=== PATIENT | female | born 1960 | race African-American/Black ===

== ENCOUNTER 2020-11-24 07:09 | Emergency (ER) | payer SELFPAY | END 2020-11-24 09:08 | disposition home or self-care (01) | LOC: ERS 07:09 | DX: H00.014 Hordeolum externum left upper eyelid (principal) | CPT/HCPCS: 99283 ==

== ENCOUNTER 2022-03-31 07:33 | Inpatient (IN) | payer BC, SELFPAY ==
[2022-03-31] MEDS ORDERED: Ipratropium Bromide 2.5 ml Neb ONE (08:34)
[2022-03-31] MEDS ORDERED: Albuterol Sulfate 1.25 MG/3 ML NEB ONE (08:38)
[2022-03-31 08:40] LABS: #Eosinphils 0.2 thou/uL (0.0-0.7); #Lymphocytes 1.6 thou/uL (1.20-3.40); #Monocytes 0.9 thou/uL (0.11-0.59); #Neutrophils 10.4 thou/uL (1.40-6.50); %Basophils 0.2 % (0.0-1.0); %Eosinophils 1.4 % (0.0-10.0); %Lymphocytes 12.3 % (21.0-51.0); %Monocytes 6.7 % (0.0-10.0); %Neutrophils 79.5 % (42.0-75.0); Hemoglobin 13.1 g/dL (12.0-16.0); Mean Corpuscular Volume 87.9 fl (78.0-98.0); Mean Platelet Volume 8.8 fL (7.4-10.4); Platelet Count 217 10x3/uL (130-400); RBC Distribution Width 13.2 % (11.5-14.5); Red Blood Cell (RBC) Count 4.51 mill/uL (4.20-5.40); White Blood Cell (WBC) Count 13.1 10x3/uL (4.8-10.8)
[2022-03-31] MEDS ORDERED: methylPREDNISolone Sod Succ/PF 125 MG/2 ML VIAL ONE (08:41)
[2022-03-31] MEDS ORDERED: Albuterol Sulfate 2.5 mg/3 ml Neb ONE (09:19)
[2022-03-31 09:24] LABS: ALT (SGPT) 28 U/L (8-55); AST (SGOT) 34 U/L (5-34); Albumin 4.1 g/dL (3.5-5.0); Alkaline Phosphatase 53 U/L (40-110); Anion Gap 16 mmol/L (10-20); BUN (Urea Nitrogen) 9 mg/dL (9.8-20.1); Bilirubin, Total 0.9 mg/dL (0.2-1.2); Calc. Creatinine Clearance 0 mL/min (70-130); Calcium 9.2 mg/dL (7.8-10.44); Carbon Dioxide 19 mmol/L (22-29); Chloride 104 mmol/L (98-107); Estimated GFR 82; Globulin 4.5 g/dL (2.4-3.5); Glucose 112 mg/dL (70-105); Potassium 4.7 mmol/L (3.5-5.1); Protein, Total 8.6 g/dL (6.0-8.3); Sodium 134 mmol/L (136-145)
[2022-03-31] MEDS ORDERED: Acetaminophen 500 MG TAB ONE (09:24)
[2022-03-31] MEDS ORDERED: Magnesium 2 GM/50 ML BAG (IN WATER) ONE (09:26)
[2022-03-31] MEDS ORDERED: cefTRIAXone\\ROCEPHIN 1 GM VIAL ONE (09:55)
[2022-03-31] MEDS ORDERED: Azithromycin 500 MG VIAL ONE (09:55)
[2022-03-31 10:34] LABS: SARS-CoV-2 NAA Rapid Test Not Detected (NotDetected)
[2022-03-31 10:43] LABS: Bilirubin Negative (Negative); Blood, Urine Negative (Negative); Clarity Clear (Clear); Glucose, Urine (Dipstick) Normal (Negative); Ketone, Urine Negative (Negative); Leukocyte Negative Leu/uL (Negative); Nitrite Negative (Negative); Protein, Urine (Dipstick) Negative (Neg-Trace); Specific Gravity, Urine 1.016 (1.002-1.036); Urobilinogen Normal mg/dL (Less than 2)
[2022-03-31 11:24] LABS: Lactic Acid 2.3 mmol/L (0.5-2.2)
[2022-03-31] MEDS ORDERED: Labetalol HCl 100 MG/20 ML VIAL SLOW IVP PRN (14:10)
[2022-03-31] MEDS ORDERED: hydrALAZINE 20 MG/ML VIAL SLOW IVP PRN (14:10)
[2022-03-31] MEDS ORDERED: Ondansetron ODT 4 MG TAB SL PRN (14:10)
[2022-03-31] MEDS ORDERED: Ondansetron PF 4 MG/2 ML Vial IVP PRN (14:10)
[2022-03-31 14:24] VITALS: BMI 35.3
[2022-03-31] MEDS: Sodium Chloride 0.9% 1,000 ML IV SCH (15:16)
[2022-03-31] MEDS: Famotidine 20 MG TAB PO SCH (19:48)
[2022-03-31] MEDS: Acetaminophen 500 MG TAB PO PRN (19:48)
[2022-03-31] MEDS: Benzonatate 100 MG CAP PO PRN (19:49)
[2022-04-01] MEDS: Sodium Chloride 0.9% 1,000 ML IV SCH ×2 (01:25→10:19)
[2022-04-01] MEDS ORDERED: Ipratropium Bromide 2.5 ml Neb ONE (02:07)
[2022-04-01 07:58] LABS: ALT (SGPT) 19 U/L (8-55); AST (SGOT) 18 U/L (5-34); Albumin 3.5 g/dL (3.5-5.0); Alkaline Phosphatase 45 U/L (40-110); Anion Gap 10 mmol/L (10-20); BUN (Urea Nitrogen) 11 mg/dL (9.8-20.1); Bilirubin, Total 0.8 mg/dL (0.2-1.2); Calc. Creatinine Clearance 107 mL/min (70-130); Calcium 8.5 mg/dL (7.8-10.44); Carbon Dioxide 21 mmol/L (22-29); Chloride 110 mmol/L (98-107); Estimated GFR 99; Globulin 3.6 g/dL (2.4-3.5); Glucose 133 mg/dL (70-105); Potassium 4.1 mmol/L (3.5-5.1); Protein, Total 7.1 g/dL (6.0-8.3); Sodium 137 mmol/L (136-145)
[2022-04-01] MEDS: Famotidine 20 MG TAB PO SCH ×2 (08:10→20:52)
[2022-04-01] MEDS: Acetaminophen 500 MG TAB PO PRN (08:10)
[2022-04-01 08:15] LABS: #Lymphocytes 1.6 thou/uL (1.20-3.40); #Monocytes 0.7 thou/uL (0.11-0.59); #Neutrophils 13.6 thou/uL (1.40-6.50); %Eosinophils 0.1 % (0.0-10.0); %Lymphocytes 9.9 % (21.0-51.0); %Monocytes 4.5 % (0.0-10.0); %Neutrophils 85.5 % (42.0-75.0); Band 5 % (5-11); Hemoglobin 11.1 g/dL (12.0-16.0); Lymphocytes 14 % (21-51); MDiff Complete? YES; Mean Corpuscular HGB CONC 32.2 g/dL (32.0-36.0); Mean Corpuscular Hemoglobin 28.6 pg (27.0-31.0); Mean Corpuscular Volume 88.6 fl (78.0-98.0); Mean Platelet Volume 8.4 fL (7.4-10.4); Monocytes 4 % (0-10); Neutrophil 77 % (42-75); Platelet Count 183 10x3/uL (130-400); Polychromasia SLIGHT = 2-3 cells (100X) (0-2/hpf); RBC Distribution Width 13.4 % (11.5-14.5); Red Blood Cell (RBC) Count 3.89 mill/uL (4.20-5.40); White Blood Cell (WBC) Count 15.9 10x3/uL (4.8-10.8)
[2022-04-01] MEDS: methylPREDNISolone Sod Succ 40 MG VIAL IVP SCH ×2 (13:06→21:00)
[2022-04-01] MEDS: Benzonatate 100 MG CAP PO PRN (20:52)
[2022-04-02] MEDS: methylPREDNISolone Sod Succ 40 MG VIAL IVP SCH (05:44)
[2022-04-02] MEDS: Acetaminophen 500 MG TAB PO PRN (05:46)
[2022-04-02] MEDS: Benzonatate 100 MG CAP PO PRN (05:46)
[2022-04-02] MEDS: Famotidine 20 MG TAB PO SCH ×2 (08:16→21:57)
[2022-04-03] MEDS ORDERED: predniSONE 5 MG TAB PO SCH (08:00)
[2022-04-03] MEDS: Acetaminophen 500 MG TAB PO PRN (08:54)
[2022-04-03] MEDS: Famotidine 20 MG TAB PO SCH (08:54)
[2022-04-03] MEDS: Benzonatate 100 MG CAP PO PRN (08:54)
[2022-04-03 09:02] VITALS: BP 140/95; TEMP 97.9
== END 2022-04-03 11:46 | disposition home or self-care (01) | DRG 871 ==
LOC: ERS 07:33 → ERHOLD 10:53 → T4-A 14:03
PROVIDERS: ADMIT Family Medicine; ATTEND Internal Medicine
DX: A41.9 Sepsis, unspecified organism (principal); J18.9 Pneumonia, unspecified organism; J96.01 Acute respiratory failure with hypoxia; J45.21 Mild intermittent asthma with (acute) exacerbation; E66.9 Obesity, unspecified; Z20.822 Contact with and (suspected) exposure to COVID-19; Z68.35 Body mass index [BMI] 35.0-35.9, adult; Z98.890 Other specified postprocedural states
CPT/HCPCS: 36415; 71045; 80053; 81003; 83605; 83880; 84484; 85025; 87040; 87077; 87149; 87633; 93005; 94640; 94644; 96374; 96375; J0456; J0696; J1956; J2920; J2930; J3475; J7050; J7512; J7611; J7620

== ENCOUNTER 2022-04-18 17:32 | Inpatient (IN) | payer BC ==
[~2022-04-18 17:32] MED LIST: Iopamidol-370 76% 500 ML 1 ML ONE
[2022-04-18] MEDS ORDERED: Magnesium 2 GM/50 ML BAG (IN WATER) ONE (17:51)
[2022-04-18] MEDS ORDERED: methylPREDNISolone Sod Succ/PF 125 MG/2 ML VIAL ONE (17:52)
[2022-04-18] MEDS ORDERED: Albuterol 2.5 MG/0.5 ML NEB ONE ×2 (17:52→17:56)
[2022-04-18] MEDS ORDERED: Labetalol HCl 100 MG/20 ML VIAL ONE (17:52)
[2022-04-18] MEDS ORDERED: Ipratropium Bromide 2.5 ml Neb ONE (17:58)
[2022-04-18] MEDS ORDERED: Ondansetron PF 4 MG/2 ML Vial ONE (18:01)
[2022-04-18 18:09] LABS: Hemoglobin 13.1 g/dL (12.0-16.0); Mean Corpuscular HGB CONC 32.9 g/dL (32.0-36.0); Mean Corpuscular Hemoglobin 28.4 pg (27.0-31.0); Mean Corpuscular Volume 86.1 fl (78.0-98.0); Platelet Count 207 10x3/uL (130-400); RBC Distribution Width 13.2 % (11.5-14.5); Red Blood Cell (RBC) Count 4.61 mill/uL (4.20-5.40); White Blood Cell (WBC) Count 10.2 10x3/uL (4.8-10.8)
[2022-04-18 18:28] LABS: MDiff Complete? YES
[2022-04-18 18:29] LABS: Eosinophils 8 % (0-10); Lymphocytes 49 % (21-51); Monocytes 6 % (0-10); Neutrophil 37 % (42-75); Platelet Morphology Comment Appears Adequate; RBC Morphology Normal
[2022-04-18 18:32] LABS: ALT (SGPT) 28 U/L (8-55); AST (SGOT) 35 U/L (5-34); Albumin 3.9 g/dL (3.5-5.0); Alkaline Phosphatase 45 U/L (40-110); Anion Gap 15 mmol/L (10-20); BUN (Urea Nitrogen) 13 mg/dL (9.8-20.1); Bilirubin, Total 0.4 mg/dL (0.2-1.2); Calc. Creatinine Clearance 0 mL/min (70-130); Calcium 9.2 mg/dL (7.8-10.44); Carbon Dioxide 20 mmol/L (22-29); Chloride 108 mmol/L (98-107); Estimated GFR 87; Globulin 4.7 g/dL (2.4-3.5); Glucose 112 mg/dL (70-105); Potassium 4.5 mmol/L (3.5-5.1); Protein, Total 8.6 g/dL (6.0-8.3); Sodium 138 mmol/L (136-145)
[2022-04-18] MEDS ORDERED: Ipratropium/Albuterol 3 ML NEB ONE (19:38)
[2022-04-18] MEDS ORDERED: Sodium Chloride 0.9% 1,000 ML IV SCH (23:30)
[2022-04-18] MEDS ORDERED: Senokot S 8.6-50 MG TAB PO PRN (23:51)
[2022-04-18] MEDS ORDERED: Ondansetron ODT 4 MG TAB PO PRN (23:51)
[2022-04-18 23:55] VITALS: BMI 40.7
[2022-04-19] MEDS: Ipratropium/Albuterol 3 ML NEB NEB SCH ×4 (02:05→18:20)
[2022-04-19 03:29] LABS: #Lymphocytes 1.4 thou/uL (1.20-3.40); #Neutrophils 9.9 thou/uL (1.40-6.50); %Eosinophils 0.2 % (0.0-10.0); %Monocytes 0.2 % (0.0-10.0); %Neutrophils 87.5 % (42.0-75.0); Hemoglobin 12.7 g/dL (12.0-16.0); Mean Corpuscular HGB CONC 33.3 g/dL (32.0-36.0); Mean Corpuscular Hemoglobin 29.4 pg (27.0-31.0); Mean Corpuscular Volume 88.2 fl (78.0-98.0); Platelet Count 170 10x3/uL (130-400); RBC Distribution Width 13.1 % (11.5-14.5); Red Blood Cell (RBC) Count 4.34 mill/uL (4.20-5.40); White Blood Cell (WBC) Count 11.3 10x3/uL (4.8-10.8)
[2022-04-19 03:48] LABS: Anion Gap 15 mmol/L (10-20); BUN (Urea Nitrogen) 10 mg/dL (9.8-20.1); Calc. Creatinine Clearance 129 mL/min (70-130); Calcium 9.1 mg/dL (7.8-10.44); Carbon Dioxide 19 mmol/L (22-29); Chloride 107 mmol/L (98-107); Estimated GFR 100; Glucose 141 mg/dL (70-105); Potassium 4.7 mmol/L (3.5-5.1); Sodium 136 mmol/L (136-145)
[2022-04-19] MEDS: methylPREDNISolone Sod Succ 40 MG VIAL IVP SCH ×2 (08:35→20:47)
[2022-04-19] MEDS: Famotidine/PF 20 mg/2ml Vial SLOW IVP SCH ×2 (08:35→20:48)
[2022-04-19] MEDS: Famotidine 20 MG TAB PO SCH ×2 (08:44→20:48)
[2022-04-19] MEDS: Acetaminophen 325 MG TAB PO PRN (11:10)
[2022-04-19] MEDS: Mometasone 200 MCG/Formoterol 5 MCG 120 PUFF INHALER INH SCH (18:21)
[2022-04-19] MEDS: Montelukast Sodium 10 mg Tablet PO SCH (20:48)
[2022-04-20] MEDS: Ipratropium/Albuterol 3 ML NEB NEB SCH ×4 (00:25→18:53)
[2022-04-20] MEDS: Mometasone 200 MCG/Formoterol 5 MCG 120 PUFF INHALER INH SCH ×2 (07:52→18:55)
[2022-04-20] MEDS: Famotidine 20 MG TAB PO SCH ×2 (08:30→20:23)
[2022-04-20] MEDS: Famotidine/PF 20 mg/2ml Vial SLOW IVP SCH ×2 (08:30→20:24)
[2022-04-20] MEDS: Acetaminophen 325 MG TAB PO PRN (08:31)
[2022-04-20] MEDS: methylPREDNISolone Sod Succ 40 MG VIAL IVP SCH (08:31)
[2022-04-20] MEDS: Montelukast Sodium 10 mg Tablet PO SCH (20:23)
[2022-04-21] MEDS: Ipratropium/Albuterol 3 ML NEB NEB SCH ×2 (00:01→07:05)
[2022-04-21 05:44] LABS: #Eosinphils 0.1 thou/uL (0.0-0.7); #Lymphocytes 2.7 thou/uL (1.20-3.40); #Monocytes 0.8 thou/uL (0.11-0.59); #Neutrophils 5.5 thou/uL (1.40-6.50); %Basophils 0.2 % (0.0-1.0); %Eosinophils 0.6 % (0.0-10.0); %Lymphocytes 30.2 % (21.0-51.0); %Monocytes 8.5 % (0.0-10.0); %Neutrophils 60.6 % (42.0-75.0); Hemoglobin 12.1 g/dL (12.0-16.0); Mean Corpuscular HGB CONC 32.6 g/dL (32.0-36.0); Mean Corpuscular Hemoglobin 28.5 pg (27.0-31.0); Mean Corpuscular Volume 87.4 fl (78.0-98.0); Mean Platelet Volume 7.6 fL (7.4-10.4); Platelet Count 209 10x3/uL (130-400); RBC Distribution Width 13.5 % (11.5-14.5); Red Blood Cell (RBC) Count 4.25 mill/uL (4.20-5.40)
[2022-04-21 06:07] LABS: ALT (SGPT) 27 U/L (8-55); AST (SGOT) 16 U/L (5-34); Albumin 3.5 g/dL (3.5-5.0); Alkaline Phosphatase 39 U/L (40-110); Anion Gap 10 mmol/L (10-20); BUN (Urea Nitrogen) 16 mg/dL (9.8-20.1); Bilirubin, Total 0.5 mg/dL (0.2-1.2); Calc. Creatinine Clearance 127 mL/min (70-130); Calcium 9.2 mg/dL (7.8-10.44); Carbon Dioxide 26 mmol/L (22-29); Chloride 105 mmol/L (98-107); Estimated GFR 100; Globulin 3.4 g/dL (2.4-3.5); Glucose 96 mg/dL (70-105); Potassium 4.1 mmol/L (3.5-5.1); Protein, Total 6.9 g/dL (6.0-8.3); Sodium 137 mmol/L (136-145)
[2022-04-21] MEDS: Mometasone 200 MCG/Formoterol 5 MCG 120 PUFF INHALER INH SCH (07:07)
[2022-04-21] MEDS ORDERED: predniSONE 20 MG TAB PO SCH (08:00)
[2022-04-21] MEDS: Famotidine 20 MG TAB PO SCH (08:44)
[2022-04-21 09:47] VITALS: BP 134/78; TEMP 97.5
[2022-04-22] MEDS ORDERED: FLU VACC QS2022-23(6MOS UP)/PF 60 MCG/0.5 ML SYRINGE IM ONE (09:00)
== END 2022-04-21 10:50 | disposition home or self-care (01) | DRG 189 ==
LOC: ERS 17:32 → IMCU/EMU 21:44 → MSONC 04-20 23:30
PROVIDERS: ADMIT Student in an Organized Health Care Education/Training Program; ATTEND Internal Medicine
PROC: 5A09357 Assistance with Respiratory Ventilation, Less than 24 Consecutive Hours, Continuous Positive Airway Pressure (ICD-10-PCS; principal; 2022-04-19)
DX: J96.01 Acute respiratory failure with hypoxia (principal); J45.21 Mild intermittent asthma with (acute) exacerbation; E66.01 Morbid (severe) obesity due to excess calories; Z68.41 Body mass index [BMI] 40.0-44.9, adult; Z98.890 Other specified postprocedural states; Z79.51 Long term (current) use of inhaled steroids; Z79.899 Other long term (current) drug therapy
CPT/HCPCS: 36415; 71045; 71275; 74174; 80048; 80053; 83605; 83880; 84145; 84484; 85025; 93005; 94640; 94660; J1650; J2405; J2920; J2930; J3475; J7050; J7512; J7611; J7620; Q9967; S0028

== ENCOUNTER 2023-01-16 20:18 | Inpatient (IN) | payer BC ==
[~2023-01-16 20:18] MED LIST changes: -Iopamidol-370 76% 500 ML 1 ML ONE; +Iopamidol-370 76% 500 ML MDV (1 ML CHARGE) ONE
[2023-01-16 20:45] LABS: #Basophils 0.1 thou/uL (0.0-0.2); #Eosinphils 0.2 thou/uL (0.0-0.7); #Monocytes 0.7 thou/uL (0.11-0.59); #Neutrophils 6.4 thou/uL (1.40-6.50); %Basophils 0.8 % (0.0-1.0); %Eosinophils 2.2 % (0.0-10.0); %Lymphocytes 14.8 % (21.0-51.0); %Monocytes 8.4 % (0.0-10.0); %Neutrophils 73.3 % (42.0-75.0); Hematocrit 40.7 % (36.0-47.0); Mean Corpuscular HGB CONC 31.9 g/dL (32.0-36.0); Mean Corpuscular Hemoglobin 26.9 pg (27.0-31.0); Mean Corpuscular Volume 84.3 fl (78.0-98.0); Platelet Count 173 10x3/uL (130-400); RBC Distribution Width 16.1 % (11.5-14.5); Red Blood Cell (RBC) Count 4.83 mill/uL (4.20-5.40); White Blood Cell (WBC) Count 8.8 10x3/uL (4.8-10.8)
[2023-01-16 21:07] LABS: ALT (SGPT) 34 U/L (8-55); AST (SGOT) 43 U/L (5-34); Albumin 4.1 g/dL (3.4-4.8); Alkaline Phosphatase 90 U/L (40-110); Anion Gap 15 mmol/L (10-20); BUN (Urea Nitrogen) 16 mg/dL (9.8-20.1); Bilirubin, Total 0.8 mg/dL (0.2-1.2); Calc. Creatinine Clearance 0 mL/min (70-130); Calcium 9.4 mg/dL (7.8-10.44); Carbon Dioxide 20 mmol/L (23-31); Chloride 105 mmol/L (98-107); Estimated GFR 78; Globulin 3.2 g/dL (2.4-3.5); Glucose 119 mg/dL (80-115); Potassium 4.2 mmol/L (3.5-5.1); Protein, Total 7.3 g/dL (5.8-8.1); Sodium 136 mmol/L (136-145)
[2023-01-16] MEDS ORDERED: Cefepime 2 GM VIAL ONE (21:38)
[2023-01-16 21:43] LABS: Anisocytosis SLIGHT = 6-15 cells HPF (0-5); CellaVision Operator ID LAB.JMM; Macrocytosis SLIGHT = 6-15 cells HPF (0-5); Platelet Adequacy Comment Platelets Normal
[2023-01-16 22:00] LABS: Actual Bicarbonate (HCO3v) 23.4 mEq/L (22-28); Analyzer IN Cardio ER; Base Excess 0.4 mEq/L (-2.0 to +3.0); Calcium, Ionized (venous) 1.08 mmol/L (1.16-1.32); Chloride (VBG) 103 mmol/L (98-106); Hematocrit-VBG 39 % (36.0-47.0); Hemoglobin (Hb) 13.2 g/dL (11.7-16.0); Potassium (VBG) 4.01 mmol/L (3.70-5.30); Sodium 135 mmol/L (133-146); pH (venous) 7.471 (7.32-7.43)
[2023-01-16] MEDS ORDERED: Vancomycin (BATCH) 2 GM in Premix 1 BAG IVPB SCH (22:30)
[2023-01-16 22:39] LABS: SARS-CoV-2 NAA Rapid Test Not Detected (NotDetected)
[2023-01-16] MEDS ORDERED: Ipratropium/Albuterol 3 ML NEB EZPAP PRN (23:35)
[2023-01-16] MEDS ORDERED: Ipratropium/Albuterol 3 ML NEB ONE (23:43)
[2023-01-17] MEDS ORDERED: Benzonatate 100 MG CAP PO PRN (00:02)
[2023-01-17] MEDS ORDERED: methylPREDNISolone Sod Succ/PF 125 MG/2 ML VIAL ONE (00:14)
[2023-01-17] MEDS ORDERED: Magnesium 2 GM/50 ML BAG (IN WATER) ONE (00:14)
[2023-01-17] MEDS ORDERED: Furosemide 20 MG/2 ML VIAL SLOW IVP SCH ×2 (01:00→06:00)
[2023-01-17] MEDS: Azithromycin 500 MG in Sodium Chloride 0.9% 250 ML 250 ML IVPB SCH (02:05)
[2023-01-17] MEDS: Ipratropium/Albuterol 3 ML NEB NEB SCH ×6 (02:30→23:58)
[2023-01-17 02:36] VITALS: BMI 41.3
[2023-01-17 02:48] LABS: Legionella Urinary Ag Negative (Negative); Strep pneumo Urine Ag NEGATIVE (NEGATIVE)
[2023-01-17] MEDS ORDERED: Electrolyte Replacement Protocol 1 EACH FS SCH (06:00)
[2023-01-17 08:01] LABS: #Monocytes 0.2 thou/uL (0.11-0.59); #Neutrophils 5.9 thou/uL (1.40-6.50); %Basophils 0.6 % (0.0-1.0); %Eosinophils 0.1 % (0.0-10.0); %Lymphocytes 11.7 % (21.0-51.0); %Monocytes 2.4 % (0.0-10.0); %Neutrophils 84.8 % (42.0-75.0); Hematocrit 39.7 % (36.0-47.0); Hemoglobin 12.5 g/dL (12.0-16.0); Mean Corpuscular HGB CONC 31.5 g/dL (32.0-36.0); Mean Corpuscular Hemoglobin 26.6 pg (27.0-31.0); Mean Corpuscular Volume 84.5 fl (78.0-98.0); Mean Platelet Volume 10.3 fL (7.4-10.4); Platelet Count 184 10x3/uL (130-400); RBC Distribution Width 15.9 % (11.5-14.5)
[2023-01-17 08:24] LABS: Anion Gap 15 mmol/L (10-20); BUN (Urea Nitrogen) 15 mg/dL (9.8-20.1); Calc. Creatinine Clearance 104 mL/min (70-130); Calcium 8.7 mg/dL (7.8-10.44); Carbon Dioxide 24 mmol/L (23-31); Chloride 102 mmol/L (98-107); Estimated GFR 79; Glucose 139 mg/dL (80-115); Potassium 4.3 mmol/L (3.5-5.1); Sodium 137 mmol/L (136-145)
[2023-01-17] MEDS: cefTRIAXone\\ROCEPHIN 1 GM in Sodium Chloride 0.9% 100 ML IVPB SCH (08:57)
[2023-01-17] MEDS: Famotidine/PF 20 mg/2ml Vial SLOW IVP SCH ×2 (08:58→20:16)
[2023-01-17] MEDS: methylPREDNISolone Sod Succ 40 MG VIAL IVP SCH ×2 (08:59→20:16)
[2023-01-17] MEDS ORDERED: Magnesium 2 GM/50 ML(in water) 2 GM in Premix 1 BAG IVPB SCH (09:30)
[2023-01-17] MEDS: Mometasone 200 MCG/Formoterol 5 MCG 120 PUFF INHALER INH SCH ×2 (10:59→19:00)
[2023-01-17] MEDS: Furosemide 40 MG/4 ML VIAL SLOW IVP SCH (13:15)
[2023-01-17] MEDS: Guaifenesin DM 100-10/5 ML UDCUP PO PRN (15:47)
[2023-01-17] MEDS: Montelukast Sodium 10 mg Tablet PO SCH (20:16)
[2023-01-17] MEDS: guaiFENesin ER 600 MG TAB PO SCH (20:16)
[2023-01-18] MEDS: Azithromycin 500 MG in Sodium Chloride 0.9% 250 ML 250 ML IVPB SCH (01:56)
[2023-01-18] MEDS: Ondansetron PF 4 MG/2 ML Vial IVP PRN (02:55)
[2023-01-18] MEDS: Ipratropium/Albuterol 3 ML NEB NEB SCH ×6 (03:04→23:38)
[2023-01-18 04:36] LABS: Anion Gap 16 mmol/L (10-20); BUN (Urea Nitrogen) 19 mg/dL (9.8-20.1); Calc. Creatinine Clearance 90 mL/min (70-130); Calcium 8.7 mg/dL (7.8-10.44); Carbon Dioxide 24 mmol/L (23-31); Chloride 100 mmol/L (98-107); Estimated GFR 66; Glucose 211 mg/dL (80-115); Potassium 4.3 mmol/L (3.5-5.1); Sodium 136 mmol/L (136-145)
[2023-01-18] MEDS: Furosemide 40 MG/4 ML VIAL SLOW IVP SCH ×2 (05:32→14:13)
[2023-01-18] MEDS: Mometasone 200 MCG/Formoterol 5 MCG 120 PUFF INHALER INH SCH ×2 (07:13→18:29)
[2023-01-18] MEDS: cefTRIAXone\\ROCEPHIN 1 GM in Sodium Chloride 0.9% 100 ML IVPB SCH (09:07)
[2023-01-18] MEDS: guaiFENesin ER 600 MG TAB PO SCH ×2 (09:07→20:29)
[2023-01-18] MEDS: methylPREDNISolone Sod Succ 40 MG VIAL IVP SCH ×2 (09:07→20:29)
[2023-01-18] MEDS: Famotidine/PF 20 mg/2ml Vial SLOW IVP SCH ×2 (09:08→20:29)
[2023-01-18] MEDS: Guaifenesin DM 100-10/5 ML UDCUP PO PRN (10:58)
[2023-01-18] MEDS: Carvedilol 3.125 MG TAB PO SCH (17:40)
[2023-01-18] MEDS: Montelukast Sodium 10 mg Tablet PO SCH (20:29)
[2023-01-19] MEDS: hydrALAZINE 20 MG/ML VIAL SLOW IVP PRN (00:21)
[2023-01-19] MEDS: Ondansetron PF 4 MG/2 ML Vial IVP PRN (00:21)
[2023-01-19] MEDS: Azithromycin 500 MG in Sodium Chloride 0.9% 250 ML 250 ML IVPB SCH (00:21)
[2023-01-19] MEDS: Ipratropium/Albuterol 3 ML NEB NEB SCH ×6 (02:51→22:54)
[2023-01-19 04:19] LABS: Anion Gap 15 mmol/L (10-20); BUN (Urea Nitrogen) 18 mg/dL (9.8-20.1); Calc. Creatinine Clearance 95 mL/min (70-130); Calcium 8.5 mg/dL (7.8-10.44); Carbon Dioxide 24 mmol/L (23-31); Chloride 98 mmol/L (98-107); Estimated GFR 73; Glucose 217 mg/dL (80-115); Potassium 4.8 mmol/L (3.5-5.1); Sodium 132 mmol/L (136-145)
[2023-01-19] MEDS: Furosemide 40 MG/4 ML VIAL SLOW IVP SCH ×2 (06:05→14:33)
[2023-01-19] MEDS: Mometasone 200 MCG/Formoterol 5 MCG 120 PUFF INHALER INH SCH ×2 (06:33→19:32)
[2023-01-19] MEDS: guaiFENesin ER 600 MG TAB PO SCH ×2 (08:21→21:07)
[2023-01-19] MEDS: Carvedilol 3.125 MG TAB PO SCH ×2 (08:21→17:00)
[2023-01-19] MEDS: predniSONE 20 MG TAB PO SCH (08:21)
[2023-01-19] MEDS: Acetaminophen 325 MG TAB PO PRN ×2 (08:23→17:04)
[2023-01-19] MEDS: Famotidine/PF 20 mg/2ml Vial SLOW IVP SCH ×2 (08:23→21:07)
[2023-01-19] MEDS: cefTRIAXone\\ROCEPHIN 1 GM in Sodium Chloride 0.9% 100 ML IVPB SCH ×2 (08:43→08:45)
[2023-01-19] MEDS: Montelukast Sodium 10 mg Tablet PO SCH (21:07)
[2023-01-20] MEDS: Ipratropium/Albuterol 3 ML NEB NEB SCH ×6 (03:14→23:14)
[2023-01-20 04:38] LABS: Hematocrit 40.1 % (36.0-47.0); Hemoglobin 12.8 g/dL (12.0-16.0); Mean Corpuscular HGB CONC 31.9 g/dL (32.0-36.0); Mean Corpuscular Hemoglobin 26.9 pg (27.0-31.0); Mean Corpuscular Volume 84.4 fl (78.0-98.0); Mean Platelet Volume 9.8 fL (7.4-10.4); Platelet Count 222 10x3/uL (130-400); RBC Distribution Width 16.1 % (11.5-14.5); Red Blood Cell (RBC) Count 4.75 mill/uL (4.20-5.40)
[2023-01-20 05:05] LABS: Anion Gap 13 mmol/L (10-20); BUN (Urea Nitrogen) 21 mg/dL (9.8-20.1); Calc. Creatinine Clearance 105 mL/min (70-130); Calcium 8.9 mg/dL (7.8-10.44); Carbon Dioxide 31 mmol/L (23-31); Chloride 98 mmol/L (98-107); Estimated GFR 83; Glucose 96 mg/dL (80-115); Potassium 4.1 mmol/L (3.5-5.1); Sodium 138 mmol/L (136-145)
[2023-01-20] MEDS: Furosemide 40 MG/4 ML VIAL SLOW IVP SCH ×2 (05:54→14:01)
[2023-01-20] MEDS: Acetaminophen 325 MG TAB PO PRN (06:00)
[2023-01-20] MEDS: Mometasone 200 MCG/Formoterol 5 MCG 120 PUFF INHALER INH SCH ×2 (07:56→19:36)
[2023-01-20] MEDS: Azithromycin 250 MG TAB PO SCH (09:22)
[2023-01-20] MEDS: Carvedilol 3.125 MG TAB PO SCH ×2 (09:22→16:57)
[2023-01-20] MEDS: predniSONE 20 MG TAB PO SCH (09:22)
[2023-01-20] MEDS: guaiFENesin ER 600 MG TAB PO SCH ×2 (09:22→20:35)
[2023-01-20] MEDS: cefTRIAXone\\ROCEPHIN 1 GM in Sodium Chloride 0.9% 100 ML IVPB SCH (09:23)
[2023-01-20] MEDS: Famotidine/PF 20 mg/2ml Vial SLOW IVP SCH ×2 (09:27→20:34)
[2023-01-20] MEDS: Montelukast Sodium 10 mg Tablet PO SCH (20:35)
[2023-01-20] MEDS: Milrinone Lactate/D5W 20 MG in Premix 1 BAG IV SCH (20:44)
[2023-01-21] MEDS: hydrALAZINE 20 MG/ML VIAL SLOW IVP PRN (01:32)
[2023-01-21] MEDS: Acetaminophen 325 MG TAB PO PRN (02:07)
[2023-01-21] MEDS: Ipratropium/Albuterol 3 ML NEB NEB SCH ×6 (03:11→23:23)
[2023-01-21 04:52] LABS: Hematocrit 41.6 % (36.0-47.0); Hemoglobin 13.5 g/dL (12.0-16.0); Mean Corpuscular HGB CONC 32.5 g/dL (32.0-36.0); Mean Corpuscular Hemoglobin 26.8 pg (27.0-31.0); Mean Corpuscular Volume 82.7 fl (78.0-98.0); Mean Platelet Volume 10.2 fL (7.4-10.4); Platelet Count 192 10x3/uL (130-400); RBC Distribution Width 15.9 % (11.5-14.5); Red Blood Cell (RBC) Count 5.03 mill/uL (4.20-5.40)
[2023-01-21 05:10] LABS: Delete Auto Diff?? YES; Manual Diff?? YES
[2023-01-21] MEDS: Furosemide 40 MG/4 ML VIAL SLOW IVP SCH ×2 (05:16→15:07)
[2023-01-21 05:20] LABS: Anion Gap 15 mmol/L (10-20); BUN (Urea Nitrogen) 16 mg/dL (9.8-20.1); Calc. Creatinine Clearance 107 mL/min (70-130); Calcium 9.1 mg/dL (7.8-10.44); Carbon Dioxide 30 mmol/L (23-31); Chloride 97 mmol/L (98-107); Estimated GFR 88; Glucose 134 mg/dL (80-115); Magnesium 2.1 mg/dL (1.6-2.6); Potassium 3.9 mmol/L (3.5-5.1); Sodium 138 mmol/L (136-145)
[2023-01-21 06:11] LABS: Anisocytosis SLIGHT = 6-15 cells HPF (0-5); Band 2 % (5-11); CellaVision Operator ID LAB.JMM; Hypochromia SLIGHT = 6-15 cells HPF (0-5); Large Platelets 2.9 % (0-5); Lymphocytes 29 % (21-51); Macrocytosis SLIGHT = 6-15 cells HPF (0-5); Monocytes 12 % (0-10); Neutrophil 51 % (42-75); Platelet Adequacy Comment Platelets Normal; Reactive Lymphocytes 7 % (0-10); Smudge Cells 11.5 %; Total Cell Count 104
[2023-01-21] MEDS: Mometasone 200 MCG/Formoterol 5 MCG 120 PUFF INHALER INH SCH ×2 (07:08→19:30)
[2023-01-21] MEDS ORDERED: Spironolactone 25 MG TAB PO SCH (08:45)
[2023-01-21] MEDS: predniSONE 20 MG TAB PO SCH (09:29)
[2023-01-21] MEDS: Azithromycin 250 MG TAB PO SCH (09:30)
[2023-01-21] MEDS: Empagliflozin 10 MG TAB PO SCH (09:30)
[2023-01-21] MEDS: guaiFENesin ER 600 MG TAB PO SCH ×2 (09:31→20:57)
[2023-01-21] MEDS: cefTRIAXone\\ROCEPHIN 1 GM in Sodium Chloride 0.9% 100 ML IVPB SCH (10:13)
[2023-01-21] MEDS: Famotidine/PF 20 mg/2ml Vial SLOW IVP SCH (10:13)
[2023-01-21] MEDS: Milrinone Lactate/D5W 20 MG in Premix 1 BAG IV SCH (12:49)
[2023-01-21] MEDS: Famotidine 20 MG TAB PO SCH (20:57)
[2023-01-21] MEDS: Montelukast Sodium 10 mg Tablet PO SCH (20:57)
[2023-01-22] MEDS: Milrinone Lactate/D5W 20 MG in Premix 1 BAG IV SCH (01:53)
[2023-01-22] MEDS: Ipratropium/Albuterol 3 ML NEB NEB SCH ×6 (03:28→22:46)
[2023-01-22 04:49] LABS: Magnesium 2.3 mg/dL (1.6-2.6)
[2023-01-22] MEDS: Furosemide 40 MG/4 ML VIAL SLOW IVP SCH ×2 (05:49→13:53)
[2023-01-22] MEDS ORDERED: fentaNYL 50 mcg/mL 1 mL Vial ONE (06:21)
[2023-01-22] MEDS ORDERED: Midazolam HCl 2 mg/2 ml Vial ONE (06:22)
[2023-01-22] MEDS ORDERED: Verapamil 5 MG/2 ML VIAL ONE (06:22)
[2023-01-22] MEDS ORDERED: Lidocaine 1% (PF) 30 ML VIAL ONE ×2 (06:22→06:23)
[2023-01-22] MEDS ORDERED: Heparin 10,000 UNITS/ 10 ML VIAL ONE (06:22)
[2023-01-22] MEDS ORDERED: Nitroglycerin 50 MG/250 ML BOT 0 ML ONE (06:23)
[2023-01-22 06:53] LABS: ALT (SGPT) 30 U/L (8-55); AST (SGOT) 23 U/L (5-34); Albumin 3.5 g/dL (3.4-4.8); Alkaline Phosphatase 81 U/L (40-110); Anion Gap 13 mmol/L (10-20); BUN (Urea Nitrogen) 15 mg/dL (9.8-20.1); Bilirubin, Total 0.3 mg/dL (0.2-1.2); Calc. Creatinine Clearance 109 mL/min (70-130); Calcium 9.2 mg/dL (7.8-10.44); Carbon Dioxide 31 mmol/L (23-31); Chloride 97 mmol/L (98-107); Estimated GFR 88; Globulin 3.1 g/dL (2.4-3.5); Glucose 107 mg/dL (80-115); Protein, Total 6.6 g/dL (5.8-8.1); Sodium 137 mmol/L (136-145)
[2023-01-22] MEDS: Mometasone 200 MCG/Formoterol 5 MCG 120 PUFF INHALER INH SCH ×2 (07:00→18:39)
[2023-01-22] MEDS ORDERED: hydrALAZINE 20 MG/ML VIAL ONE (07:26)
[2023-01-22] MEDS ORDERED: Nitroglycerin 0.4 MG TAB (25 Tab Bottle) SL PRN (08:14)
[2023-01-22] MEDS ORDERED: Sodium Chloride 0.9% 200 ML IV PRN (08:14)
[2023-01-22] MEDS ORDERED: Acetaminophen/Codeine 30-300mg Tablet PO PRN ×2 (08:14)
[2023-01-22] MEDS: Famotidine 20 MG TAB PO SCH ×2 (09:33→20:01)
[2023-01-22] MEDS: cefTRIAXone\\ROCEPHIN 1 GM in Sodium Chloride 0.9% 100 ML IVPB SCH (09:33)
[2023-01-22] MEDS: Empagliflozin 10 MG TAB PO SCH (09:33)
[2023-01-22] MEDS: guaiFENesin ER 600 MG TAB PO SCH ×2 (09:34→20:01)
[2023-01-22] MEDS: predniSONE 20 MG TAB PO SCH (09:34)
[2023-01-22] MEDS: Spironolactone 25 MG TAB PO SCH (09:34)
[2023-01-22] MEDS ORDERED: hydrALAZINE 10 MG TAB PO SCH (09:45)
[2023-01-22] MEDS ORDERED: Isosorbide Dinitrate 5 MG TAB PO SCH (09:45)
[2023-01-22] MEDS: hydrALAZINE 10 MG TAB PO SCH ×2 (13:53→21:37)
[2023-01-22] MEDS: Isosorbide Dinitrate 5 MG TAB PO SCH ×2 (13:53→21:37)
[2023-01-22] MEDS: Potassium Chloride 10 MEQ TAB PO SCH (15:56)
[2023-01-22] MEDS: Acetaminophen 325 MG TAB PO PRN (18:14)
[2023-01-22] MEDS: Atorvastatin Calcium 40 MG TAB PO SCH (20:01)
[2023-01-22] MEDS: Montelukast Sodium 10 mg Tablet PO SCH (20:01)
[2023-01-23] MEDS: Ipratropium/Albuterol 3 ML NEB NEB SCH ×5 (02:37→22:18)
[2023-01-23 04:49] LABS: Hematocrit 39.4 % (36.0-47.0); Hemoglobin 12.8 g/dL (12.0-16.0); Mean Corpuscular HGB CONC 32.5 g/dL (32.0-36.0); Mean Corpuscular Hemoglobin 26.8 pg (27.0-31.0); Mean Corpuscular Volume 82.6 fl (78.0-98.0); Mean Platelet Volume 9.8 fL (7.4-10.4); Platelet Count 247 10x3/uL (130-400); Red Blood Cell (RBC) Count 4.77 mill/uL (4.20-5.40); White Blood Cell (WBC) Count 8.7 10x3/uL (4.8-10.8)
[2023-01-23 04:59] LABS: Delete Auto Diff?? YES; Manual Diff?? YES
[2023-01-23 05:21] LABS: Anion Gap 14 mmol/L (10-20); BUN (Urea Nitrogen) 19 mg/dL (9.8-20.1); Calc. Creatinine Clearance 101 mL/min (70-130); Calcium 9.5 mg/dL (7.8-10.44); Carbon Dioxide 32 mmol/L (23-31); Chloride 95 mmol/L (98-107); Estimated GFR 80; Glucose 127 mg/dL (80-115); Magnesium 2.5 mg/dL (1.6-2.6); Potassium 3.7 mmol/L (3.5-5.1); Sodium 137 mmol/L (136-145)
[2023-01-23 05:30] LABS: Anisocytosis SLIGHT = 6-15 cells HPF (0-5); CellaVision Operator ID LAB.CLH1; Hypochromia SLIGHT = 6-15 cells HPF (0-5); Large Platelets 5.9 % (0-5); Lymphocytes 20 % (21-51); Macrocytosis SLIGHT = 6-15 cells HPF (0-5); Monocytes 11 % (0-10); Neutrophil 63 % (42-75); Platelet Adequacy Comment Platelets Normal; Polychromasia SLIGHT = 2-3 cells HPF (0-2); Reactive Lymphocytes 7 % (0-10); Total Cell Count 102
[2023-01-23] MEDS: Furosemide 40 MG/4 ML VIAL SLOW IVP SCH (06:16)
[2023-01-23] MEDS: Isosorbide Dinitrate 5 MG TAB PO SCH (06:16)
[2023-01-23] MEDS: hydrALAZINE 10 MG TAB PO SCH (06:16)
[2023-01-23] MEDS: Milrinone Lactate/D5W 20 MG in Premix 1 BAG IV SCH (06:16)
[2023-01-23] MEDS: Mometasone 200 MCG/Formoterol 5 MCG 120 PUFF INHALER INH SCH ×2 (07:24→19:07)
[2023-01-23] MEDS: Famotidine 20 MG TAB PO SCH ×2 (09:40→22:00)
[2023-01-23] MEDS: Aspirin Chewable 81 MG TAB PO SCH (09:40)
[2023-01-23] MEDS: Spironolactone 25 MG TAB PO SCH (09:40)
[2023-01-23] MEDS: Potassium Chloride 10 MEQ TAB PO SCH ×2 (09:40→16:24)
[2023-01-23] MEDS: Sacubitril 24MG/Valsartan 26 MG TAB PO SCH ×2 (09:40→21:59)
[2023-01-23] MEDS: Empagliflozin 10 MG TAB PO SCH (09:41)
[2023-01-23] MEDS: predniSONE 20 MG TAB PO SCH (09:41)
[2023-01-23] MEDS: guaiFENesin ER 600 MG TAB PO SCH ×2 (09:41→21:59)
[2023-01-23] MEDS: Bumetanide 1 MG TAB PO SCH (16:24)
[2023-01-23] MEDS ORDERED: Acetaminophen/Codeine 30-300mg Tablet PO PRN ×2 (20:07)
[2023-01-23] MEDS ORDERED: Nitroglycerin 0.4 MG TAB (25 Tab Bottle) SL PRN (20:07)
[2023-01-23] MEDS ORDERED: Sodium Chloride 0.9% 200 ML IV PRN (20:07)
[2023-01-23] MEDS: Montelukast Sodium 10 mg Tablet PO SCH (22:00)
[2023-01-23] MEDS: Atorvastatin Calcium 40 MG TAB PO SCH (22:00)
[2023-01-24 05:15] LABS: #Monocytes 1.2 thou/uL (0.11-0.59); #Neutrophils 6.7 thou/uL (1.40-6.50); %Basophils 0.1 % (0.0-1.0); %Eosinophils 0.2 % (0.0-10.0); %Lymphocytes 28.8 % (21.0-51.0); %Monocytes 10.4 % (0.0-10.0); %Neutrophils 59.9 % (42.0-75.0); Mean Corpuscular HGB CONC 32.6 g/dL (32.0-36.0); Mean Corpuscular Hemoglobin 26.8 pg (27.0-31.0); Mean Corpuscular Volume 82.2 fl (78.0-98.0); Mean Platelet Volume 9.4 fL (7.4-10.4); Platelet Count 300 10x3/uL (130-400); RBC Distribution Width 16.1 % (11.5-14.5); Red Blood Cell (RBC) Count 5.23 mill/uL (4.20-5.40); White Blood Cell (WBC) Count 11.3 10x3/uL (4.8-10.8)
[2023-01-24 05:46] LABS: Anion Gap 15 mmol/L (10-20); BUN (Urea Nitrogen) 15 mg/dL (9.8-20.1); Calc. Creatinine Clearance 105 mL/min (70-130); Calcium 9.5 mg/dL (7.8-10.44); Carbon Dioxide 29 mmol/L (23-31); Chloride 99 mmol/L (98-107); Estimated GFR 86; Glucose 104 mg/dL (80-115); Magnesium 2.4 mg/dL (1.6-2.6); Sodium 139 mmol/L (136-145)
[2023-01-24] MEDS: Ipratropium/Albuterol 3 ML NEB NEB SCH ×3 (07:26→22:17)
[2023-01-24] MEDS: Mometasone 200 MCG/Formoterol 5 MCG 120 PUFF INHALER INH SCH ×2 (07:26→19:29)
[2023-01-24] MEDS ORDERED: Milrinone Lactate/D5W 20 MG in Premix 1 BAG IV SCH (08:15)
[2023-01-24] MEDS: Spironolactone 25 MG TAB PO SCH (08:24)
[2023-01-24] MEDS: Bumetanide 1 MG TAB PO SCH ×2 (08:24→17:25)
[2023-01-24] MEDS: Famotidine 20 MG TAB PO SCH ×2 (08:24→20:44)
[2023-01-24] MEDS: guaiFENesin ER 600 MG TAB PO SCH ×2 (08:24→20:46)
[2023-01-24] MEDS: Potassium Chloride 10 MEQ TAB PO SCH ×2 (08:24→17:25)
[2023-01-24] MEDS: Empagliflozin 10 MG TAB PO SCH (08:25)
[2023-01-24] MEDS: Aspirin Chewable 81 MG TAB PO SCH (08:25)
[2023-01-24] MEDS: Sacubitril 49 MG/Valsartan 51 MG TABLET PO SCH ×2 (08:25→20:44)
[2023-01-24] MEDS: Montelukast Sodium 10 mg Tablet PO SCH (20:44)
[2023-01-24] MEDS: Atorvastatin Calcium 40 MG TAB PO SCH (20:44)
[2023-01-25 05:59] LABS: #Basophils 0.1 thou/uL (0.0-0.2); #Eosinphils 0.3 thou/uL (0.0-0.7); #Monocytes 1.3 thou/uL (0.11-0.59); #Neutrophils 5.2 thou/uL (1.40-6.50); %Basophils 0.4 % (0.0-1.0); %Eosinophils 2.8 % (0.0-10.0); %Lymphocytes 39.1 % (21.0-51.0); %Monocytes 11.1 % (0.0-10.0); %Neutrophils 45.4 % (42.0-75.0); Hematocrit 47.5 % (36.0-47.0); Hemoglobin 15.4 g/dL (12.0-16.0); Mean Corpuscular HGB CONC 32.4 g/dL (32.0-36.0); Mean Corpuscular Hemoglobin 26.9 pg (27.0-31.0); Mean Corpuscular Volume 82.9 fl (78.0-98.0); Mean Platelet Volume 9.7 fL (7.4-10.4); Platelet Count 332 10x3/uL (130-400); RBC Distribution Width 16.4 % (11.5-14.5); Red Blood Cell (RBC) Count 5.73 mill/uL (4.20-5.40); White Blood Cell (WBC) Count 11.5 10x3/uL (4.8-10.8)
[2023-01-25 06:24] LABS: Anion Gap 14 mmol/L (10-20); BUN (Urea Nitrogen) 12 mg/dL (9.8-20.1); Calc. Creatinine Clearance 92 mL/min (70-130); Calcium 9.3 mg/dL (7.8-10.44); Carbon Dioxide 28 mmol/L (23-31); Chloride 98 mmol/L (98-107); Estimated GFR 76; Glucose 115 mg/dL (80-115); Magnesium 2.3 mg/dL (1.6-2.6); Potassium 4.7 mmol/L (3.5-5.1); Sodium 135 mmol/L (136-145)
[2023-01-25] MEDS: Ipratropium/Albuterol 3 ML NEB NEB SCH ×3 (07:36→22:41)
[2023-01-25] MEDS: Mometasone 200 MCG/Formoterol 5 MCG 120 PUFF INHALER INH SCH ×2 (07:38→18:48)
[2023-01-25] MEDS: guaiFENesin ER 600 MG TAB PO SCH ×2 (08:39→20:22)
[2023-01-25] MEDS: Aspirin Chewable 81 MG TAB PO SCH (08:39)
[2023-01-25] MEDS: Famotidine 20 MG TAB PO SCH ×2 (08:39→20:22)
[2023-01-25] MEDS: Sacubitril 49 MG/Valsartan 51 MG TABLET PO SCH ×2 (08:40→20:22)
[2023-01-25] MEDS: Empagliflozin 10 MG TAB PO SCH (08:40)
[2023-01-25] MEDS: Spironolactone 25 MG TAB PO SCH (08:40)
[2023-01-25] MEDS ORDERED: Bumetanide 1 MG TAB PO SCH (09:00)
[2023-01-25 09:49] LABS: T4 9.33 ug/dL (4.87-11.72)
[2023-01-25] MEDS: Atorvastatin Calcium 40 MG TAB PO SCH (20:21)
[2023-01-25] MEDS: Montelukast Sodium 10 mg Tablet PO SCH (20:22)
[2023-01-26 04:23] LABS: #Basophils 0.1 thou/uL (0.0-0.2); #Eosinphils 0.5 thou/uL (0.0-0.7); #Monocytes 1.5 thou/uL (0.11-0.59); #Neutrophils 5.8 thou/uL (1.40-6.50); %Basophils 0.5 % (0.0-1.0); %Eosinophils 4.2 % (0.0-10.0); %Lymphocytes 35.3 % (21.0-51.0); %Monocytes 12.2 % (0.0-10.0); %Neutrophils 46.8 % (42.0-75.0); Hematocrit 45.2 % (36.0-47.0); Hemoglobin 14.6 g/dL (12.0-16.0); Mean Corpuscular HGB CONC 32.3 g/dL (32.0-36.0); Mean Corpuscular Hemoglobin 26.6 pg (27.0-31.0); Mean Corpuscular Volume 82.5 fl (78.0-98.0); Mean Platelet Volume 9.2 fL (7.4-10.4); Platelet Count 289 10x3/uL (130-400); RBC Distribution Width 15.9 % (11.5-14.5); Red Blood Cell (RBC) Count 5.48 mill/uL (4.20-5.40); White Blood Cell (WBC) Count 12.4 10x3/uL (4.8-10.8)
[2023-01-26 04:51] LABS: Anion Gap 14 mmol/L (10-20); BUN (Urea Nitrogen) 12 mg/dL (9.8-20.1); Calc. Creatinine Clearance 98 mL/min (70-130); Calcium 9.2 mg/dL (7.8-10.44); Carbon Dioxide 26 mmol/L (23-31); Chloride 97 mmol/L (98-107); Estimated GFR 81; Glucose 103 mg/dL (80-115); Magnesium 2.2 mg/dL (1.6-2.6); Potassium 4.5 mmol/L (3.5-5.1); Sodium 132 mmol/L (136-145)
[2023-01-26] MEDS: Ipratropium/Albuterol 3 ML NEB NEB SCH ×3 (07:55→22:34)
[2023-01-26] MEDS: Mometasone 200 MCG/Formoterol 5 MCG 120 PUFF INHALER INH SCH ×2 (08:17→19:28)
[2023-01-26] MEDS: guaiFENesin ER 600 MG TAB PO SCH ×2 (08:24→20:25)
[2023-01-26] MEDS: Empagliflozin 10 MG TAB PO SCH (08:24)
[2023-01-26] MEDS: Aspirin Chewable 81 MG TAB PO SCH (08:24)
[2023-01-26] MEDS: Spironolactone 25 MG TAB PO SCH (08:24)
[2023-01-26] MEDS: Famotidine 20 MG TAB PO SCH ×2 (08:24→20:25)
[2023-01-26] MEDS: Sacubitril 49 MG/Valsartan 51 MG TABLET PO SCH ×2 (08:24→20:25)
[2023-01-26] MEDS: cefTRIAXone\\ROCEPHIN 1 GM in Sodium Chloride 0.9% 100 ML IVPB SCH (08:24)
[2023-01-26 13:52] LABS: Thyroid Peroxidase IgG Ab 9.6 IU/mL (<25 Normal)
[2023-01-26] MEDS: Heparin 5,000 UNITS/ML VIAL SC SCH ×2 (15:42→20:25)
[2023-01-26] MEDS: Atorvastatin Calcium 40 MG TAB PO SCH (20:25)
[2023-01-26] MEDS: Montelukast Sodium 10 mg Tablet PO SCH (20:25)
[2023-01-27 04:28] LABS: #Basophils 0.1 thou/uL (0.0-0.2); #Eosinphils 0.5 thou/uL (0.0-0.7); #Monocytes 1.2 thou/uL (0.11-0.59); #Neutrophils 5.1 thou/uL (1.40-6.50); %Basophils 0.7 % (0.0-1.0); %Eosinophils 4.9 % (0.0-10.0); %Lymphocytes 35.1 % (21.0-51.0); %Neutrophils 47.6 % (42.0-75.0); Hematocrit 43.1 % (36.0-47.0); Mean Corpuscular HGB CONC 32.5 g/dL (32.0-36.0); Mean Corpuscular Hemoglobin 26.6 pg (27.0-31.0); Mean Corpuscular Volume 81.9 fl (78.0-98.0); Mean Platelet Volume 9.9 fL (7.4-10.4); Platelet Count 284 10x3/uL (130-400); RBC Distribution Width 15.8 % (11.5-14.5); Red Blood Cell (RBC) Count 5.26 mill/uL (4.20-5.40); White Blood Cell (WBC) Count 10.7 10x3/uL (4.8-10.8)
[2023-01-27 04:55] LABS: Anion Gap 15 mmol/L (10-20); BUN (Urea Nitrogen) 19 mg/dL (9.8-20.1); Calc. Creatinine Clearance 48 mL/min (70-130); Calcium 8.9 mg/dL (7.8-10.44); Carbon Dioxide 23 mmol/L (23-31); Chloride 99 mmol/L (98-107); Estimated GFR 85; Glucose 99 mg/dL (80-115); Magnesium 2.2 mg/dL (1.6-2.6); Potassium 4.5 mmol/L (3.5-5.1); Sodium 132 mmol/L (136-145)
[2023-01-27] MEDS: Ipratropium/Albuterol 3 ML NEB NEB SCH ×3 (06:57→21:58)
[2023-01-27] MEDS: Mometasone 200 MCG/Formoterol 5 MCG 120 PUFF INHALER INH SCH ×2 (06:59→18:27)
[2023-01-27] MEDS: Apixaban 5 MG TAB PO SCH ×2 (09:00→20:04)
[2023-01-27] MEDS: Spironolactone 25 MG TAB PO SCH (09:00)
[2023-01-27] MEDS: Famotidine 20 MG TAB PO SCH ×2 (09:01→20:04)
[2023-01-27] MEDS: guaiFENesin ER 600 MG TAB PO SCH ×2 (09:01→20:04)
[2023-01-27] MEDS: Heparin 5,000 UNITS/ML VIAL SC SCH ×3 (09:01→20:04)
[2023-01-27] MEDS: Sacubitril 49 MG/Valsartan 51 MG TABLET PO SCH ×2 (09:01→20:04)
[2023-01-27] MEDS: Empagliflozin 10 MG TAB PO SCH (09:01)
[2023-01-27] MEDS: Aspirin Chewable 81 MG TAB PO SCH (09:01)
[2023-01-27] MEDS: Torsemide 20 MG TAB PO SCH (09:01)
[2023-01-27] MEDS: cefTRIAXone\\ROCEPHIN 1 GM in Sodium Chloride 0.9% 100 ML IVPB SCH (09:02)
[2023-01-27] MEDS: Montelukast Sodium 10 mg Tablet PO SCH (20:04)
[2023-01-27] MEDS: Atorvastatin Calcium 40 MG TAB PO SCH (20:04)
[2023-01-28 04:27] LABS: #Basophils 0.1 thou/uL (0.0-0.2); #Eosinphils 0.4 thou/uL (0.0-0.7); #Monocytes 1.1 thou/uL (0.11-0.59); #Neutrophils 4.5 thou/uL (1.40-6.50); %Basophils 1.1 % (0.0-1.0); %Eosinophils 3.9 % (0.0-10.0); %Lymphocytes 34.3 % (21.0-51.0); %Monocytes 11.8 % (0.0-10.0); %Neutrophils 48.3 % (42.0-75.0); Hematocrit 42.2 % (36.0-47.0); Hemoglobin 13.7 g/dL (12.0-16.0); Mean Corpuscular HGB CONC 32.5 g/dL (32.0-36.0); Mean Corpuscular Hemoglobin 26.4 pg (27.0-31.0); Mean Corpuscular Volume 81.5 fl (78.0-98.0); Mean Platelet Volume 9.2 fL (7.4-10.4); Platelet Count 265 10x3/uL (130-400); RBC Distribution Width 15.5 % (11.5-14.5); Red Blood Cell (RBC) Count 5.18 mill/uL (4.20-5.40); White Blood Cell (WBC) Count 9.4 10x3/uL (4.8-10.8)
[2023-01-28 04:53] LABS: Anion Gap 14 mmol/L (10-20); BUN (Urea Nitrogen) 18 mg/dL (9.8-20.1); Calc. Creatinine Clearance 97 mL/min (70-130); Carbon Dioxide 25 mmol/L (23-31); Chloride 99 mmol/L (98-107); Estimated GFR 78; Glucose 106 mg/dL (80-115); Magnesium 2.2 mg/dL (1.6-2.6); Potassium 4.4 mmol/L (3.5-5.1); Sodium 134 mmol/L (136-145)
[2023-01-28] MEDS: Mometasone 200 MCG/Formoterol 5 MCG 120 PUFF INHALER INH SCH (07:20)
[2023-01-28] MEDS: Ipratropium/Albuterol 3 ML NEB NEB SCH (07:20)
[2023-01-28 07:50] VITALS: TEMP 97.3
[2023-01-28] MEDS: Famotidine 20 MG TAB PO SCH (10:36)
[2023-01-28] MEDS: Torsemide 20 MG TAB PO SCH (10:37)
[2023-01-28] MEDS: Sacubitril 49 MG/Valsartan 51 MG TABLET PO SCH (10:37)
[2023-01-28] MEDS: Apixaban 5 MG TAB PO SCH (10:37)
[2023-01-28] MEDS: guaiFENesin ER 600 MG TAB PO SCH (10:37)
[2023-01-28] MEDS: Aspirin Chewable 81 MG TAB PO SCH (10:38)
[2023-01-28] MEDS: cefTRIAXone\\ROCEPHIN 1 GM in Sodium Chloride 0.9% 100 ML IVPB SCH (10:38)
[2023-01-28] MEDS: Spironolactone 25 MG TAB PO SCH (10:38)
[2023-01-28] MEDS: Empagliflozin 10 MG TAB PO SCH (10:38)
[2023-01-28 10:45] VITALS: BP 129/90
[2023-02-03] MEDS ORDERED: Apixaban 5 MG TAB PO SCH (09:00)
== END 2023-01-28 13:45 | disposition home or self-care (01) | DRG 286 ==
LOC: ERS 20:18 → ERHOLD 23:33 → CCU 01-17 01:57 → 2NO 01-19 22:02
PROVIDERS: ADMIT Internal Medicine; ATTEND Internal Medicine
PROC: 4A043R1 Measurement of Venous Saturation, Peripheral, Percutaneous Approach (ICD-10-PCS; 2023-01-16)
PROC: 5A09357 Assistance with Respiratory Ventilation, Less than 24 Consecutive Hours, Continuous Positive Airway Pressure (ICD-10-PCS; 2023-01-17)
PROC: 4A023N7 Measurement of Cardiac Sampling and Pressure, Left Heart, Percutaneous Approach (ICD-10-PCS; principal; 2023-01-22)
PROC: B2151ZZ Fluoroscopy of Left Heart using Low Osmolar Contrast (ICD-10-PCS; 2023-01-22)
PROC: B2111ZZ Fluoroscopy of Multiple Coronary Arteries using Low Osmolar Contrast (ICD-10-PCS; 2023-01-22)
DX: I42.8 Other cardiomyopathies (principal); I50.23 Acute on chronic systolic (congestive) heart failure; J18.9 Pneumonia, unspecified organism; J96.01 Acute respiratory failure with hypoxia; J45.21 Mild intermittent asthma with (acute) exacerbation; L03.113 Cellulitis of right upper limb; I11.0 Hypertensive heart disease with heart failure; I50.9 Heart failure, unspecified; E66.01 Morbid (severe) obesity due to excess calories; I27.20 Pulmonary hypertension, unspecified; I25.10 Atherosclerotic heart disease of native coronary artery without angina pectoris; E04.1 Nontoxic single thyroid nodule; I80.8 Phlebitis and thrombophlebitis of other sites; M79.89 Other specified soft tissue disorders; Z20.822 Contact with and (suspected) exposure to COVID-19; Z79.899 Other long term (current) drug therapy; Z98.891 History of uterine scar from previous surgery; Z98.890 Other specified postprocedural states; Z82.49 Family history of ischemic heart disease and other diseases of the circulatory system; Z68.39 Body mass index [BMI] 39.0-39.9, adult
CPT/HCPCS: 36415; 71045; 71250; 71275; 76536; 80048; 80053; 82805; 83605; 83735; 83880; 84436; 84442; 84443; 84479; 84484; 85025; 85027; 86376; 86800; 87040; 87070; 87205; 87449; 87899; 93005; 93306; 93458; 93798; 94640; 94660; 94664; 94760; 96365; 96366; 96367; 96375; 99152; J0360; J0456; J0692; J0696; J1644; J1650; J1940; J2001; J2250; J2260; J2405; J2920; J2930; J3010; J3370; J3475; J3490; J7050; J7512; J7620; Q9967; S0028

== ENCOUNTER 2023-03-17 12:05 | Day surgery (SDC) | payer BC ==
[2023-03-17] MEDS ORDERED: Lidocaine 1% PF 5 ML VIAL ONE (12:15)
[2023-03-17] MEDS ORDERED: Sodium Bicarbonate 2.5 MEQ/5 ML VIAL ONE (12:15)
[2023-03-17] MEDS ORDERED: Lidocaine 1% w/Epinephrine 1:100K 20 ML VIAL ONE (12:16)
[2023-03-17 13:35] VITALS: BP 137/90; TEMP 98.6
[2023-03-17] MEDS ORDERED: FLU VACC QS2023-24(6MOS UP)/PF 60 MCG/0.5 ML SYRINGE IM ONE (14:00)
== END 2023-03-17 13:15 | disposition home or self-care (01) ==
LOC: ULT 12:05
PROVIDERS: ATTEND Specialist
PROC: 0G9H3ZX Drainage of Right Thyroid Gland Lobe, Percutaneous Approach, Diagnostic (ICD-10-PCS; principal; 2023-03-17)
DX: E07.9 Disorder of thyroid, unspecified (principal)
CPT/HCPCS: 10005; 88173; 88305; 90471; 90686; G0008